=== PATIENT | male | born 1995 | race Caucasian/White ===

== ENCOUNTER 2017-10-10 11:04 | Emergency (ER) | payer OTHER ==
[~2017-10-10] VITALS: Ht 177.8 cm; Wt 73.1 kg
[2017-10-10 11:09] VITALS: TEMP 36.7; Ht 177.8 cm; Wt 73.1 kg
--- NOTE | 2017-10-10 12:57 | DIAGNOSTIC IMAGING REPORT ---
CERVICAL SPINE W/O CT DOSE: HISTORY: Trauma no boarding accident questionable LOC high neck pain TECHNIQUE: Multiaxial CT images of the cervical spine were performed and reformatted in the sagittal and coronal plane without the use of contrast. A dose lowering technique was utilized adhering to the principles of ALARA. COMPARISON: None. FINDINGS: No fractures. No subluxation. Prevertebral soft tissues and the C1-C2 interval are intact. No pneumothorax. IMPRESSION: No fractures within the cervical spine. The above report was generated using voice recognition software. It may contain grammatical, syntax or spelling errors. Electronically signed by: Ben Casillas M.D. 10/10/2017 12:55 PM Dictated Date/Time: 10/10/2017 12:51 PM
--- NOTE | 2017-10-10 12:59 | DIAGNOSTIC IMAGING REPORT ---
HEAD WITHOUT CONTRAST (CT) CLINICAL HISTORY: 21 years-old Male with fall while snowboarding; questionable LOC, , headache, nasal ble. Acute fall with possible loss of consciousness TECHNIQUE: Multiple axial CT images of the head were obtained without contrast. A dose lowering technique was utilized adhering to the principles of ALARA. CT DOSE: 1023.26 mGy.cm COMPARISON: Cervical spine CT of same day. FINDINGS: No acute intracranial hemorrhage, midline shift, intracranial mass, hydrocephalus, territorial ischemia or abnormal extra-axial collection. Focal area of ill-defined low-attenuation measuring 7 mm near the insular cortex suggests sulcus with adjacent tissue averaging. The calvarium is intact. Moderate mucosal thickening of the ethmoid, maxillary and sphenoid sinuses with air-fluid levels of the bilateral maxillary sinuses suggesting acute disease. IMPRESSION: 1. No acute intracranial abnormality. 2. Moderate paranasal sinus disease with acute maxillary sinusitis. The above report was generated using voice recognition software. It may contain grammatical, syntax or spelling errors. Electronically signed by: Js Owens M.D. 10/10/2017 12:57 PM Dictated Date/Time: 10/10/2017 12:53 PM
[2017-10-10 13:05] VITALS: BP 132/81; PULSE 80; O2SAT 98
--- NOTE | 2017-10-10 17:44 | EMERGENCY ROOM VISIT NOTE ---
ED Visit Note First contact with patient: 11:31 Chief Complaint: Head injury. History of Present Illness: Mr. Torres is a 21-year-old male who ambulates into the ED accompanied his mother complaining of a possible head injury. 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 Patient is amnestic to the event. He vaguely remembers getting up after his fall and re-joining his group. He does not remember many of the interactions after that but does report that his friends said he was repeating multiple questions. When he took off his helmet he noted that the occipital area of the helmet was cracked. He is unsure if he had a loss of consciousness. Additionally he notes he had a nosebleed immediately after the injury. Additionally he does not remember the events of the day before. Patient reports he remember some time last evening he developed a headache to the top of the head. He believes it's been constant. He describes it as a pressure sensation. He rates his discomfort 5/10. His pain is nonradiating. He has noted when he attempted read the pain got worse. He has not identified any alleviating factors related to the pain. He has not taken any medications for pain prior to arrival at the hospital. Associated with his pain he reports he really has a sharp spike light pain in the left temporal area, he has had light sensitivity, he is feeling slightly fatigued and he feels he has been more irritable. Additionally he reports during his assessment that he is also having upper cervical spine pain in the area of C2-C3. He does not describe his discomfort or rate his discomfort. He denies radiation of his discomfort. Head movement slightly increases his discomfort. He denies dizziness, lightheadedness, visual changes, hearing changes, difficulty speaking, difficulty swallowing, difficulty ambulating/coordinating body movements, thoracic and lumbar back pain, chest pain, shortness of breath, abdominal pain, nausea, vomiting, upper extremity weakness/numbness/tingling. Review of Systems: As noted above in history of present illness. All body systems were reviewed and found to be negative as noted above. Past Medical History: Migraine headaches. Current Medications: Patient denies. Allergies to Medications: Patient denies. Social History: Patient is currently employed; he feels safe in his home environment; he admits to social and tobacco use. Physical Examination: Vital Signs: Date Time Temp Pulse Resp B/P (MAP) Pulse Ox O2 Delivery O2 Flow Rate FiO2 10/10/17 13:05 80 20 132/81 98 Room Air 10/10/17 11:09 36.7 93 18 148/86 97 Room Air GENERAL: 21-year-old male in mild distress due to pain, nontoxic-appearing, afebrile and hemodynamically stable. NEUROLOGICAL: Awake, alert and oriented to person, place and time. Answering questions appropriately and following commands. Normal gait. Good hand eye coordination. No focal motor or sensory deficits. Romberg test negative. Pronator drift test negative. Poor long-term memory. Good short-term memory. Able to spell backwards. Normal rapid alternate movements of the hands and fingers. Normal heel gonzales test. SKIN: Warm, dry and pink. No soft trauma noted. HEENT: Atraumatic and normocephalic. Skull: No bony deformity, depressions, swelling or ecchymosis. No raccoon's eyes or zuniga signs. No drainage from the ears of the nostrils; there was a small amount of scant blood in the right nostril with no active bleeding. Face: No bony deformity, bony crepitus, swelling or ecchymosis. PERRLA. EOMI without nystagmus. No malocclusion. Airway patent. Speech is normal and clear. No intraoral trauma. Trachea midline. No jugular venous distention. BACK: Mild tenderness over the cervical spine in the area of the C2-C4. I do not appreciate any bony deformity, bony crepitus, swelling or ecchymosis. There are no step offs. No tenderness throughout the thoracic or lumbar spine. No CVA tenderness. THORAX: Lungs sounds are clear to auscultation and equal bilaterally with symmetrical chest wall. No crepitus, tenderness, subcutaneous air or deformities noted. ABDOMEN: Flat, soft and nontender. Positive bowel sounds in all quadrants. No guarding, rigidity or organomegaly. EXTREMITIES: Moves all extremities well on command and with purpose. All distal neurovascular statuses are intact and equal bilaterally. 4/5 muscle strength in all movements of the shoulders, elbows, forearms, wrists, hands, hips, knees, ankles and feet. Deep tendon reflexes are intact and equal bilaterally in the upper and lower extremities. ED Course: Patient is assessed as noted above. Patient's medication list was reviewed. Head CT: Was read by the radiologist and reviewed by myself and shows no acute intracranial abnormalities or skull fractures. Radiologist does note moderate paranasal sinus disease. Cervical Spine CT: Was reviewed by myself and read by the radiologist and shows no acute fractures or subluxations. Patient was offered pain medications and refused. Patient and mother were educated about today's findings and instructed on his treatment plan; they verbalized understanding and agreement with this plan. Clinical Impression: Closed head injury. Disposition: Patient discharged home in stable condition accompanied by his mother; prior to departure he was reassessed and subjectively reported he was feeling slightly improved and rated his headache 4/10. Plan: Comfort measures were discussed with the patient and his mother including rest, alternating ibuprofen and acetaminophen, alcohol avoidance. Patient was encouraged to follow-up with [facility]. Patient and mother were educated on signs of worsening head injury. Patient was encouraged return ED for worsening signs of head injury or any new/ concerning symptoms.
== END 2017-10-10 13:29 | disposition home or self-care (01) ==
LOC: C.EDB 11:07 → C.EDD 13:29
DX: S09.90XA Unspecified injury of head, initial encounter (principal); R51 Headache; M54.2 Cervicalgia; V00.311A Fall from snowboard, initial encounter; F17.200 Nicotine dependence, unspecified, uncomplicated